=== PATIENT | female | born 1955 | race Two or more races ===

== ENCOUNTER → 2016-08-04 | Outpatient (CLI) | payer OTHER ==
[2016-08-04 14:19] VITALS: BP 139/75; PULSE 86; TEMP 98.1; BMI 27.6
--- NOTE | 2016-08-04 14:22 | P.BASOAP ---
Subjective Principal diagnosis: Morbid obesity Patient is known to our service. Somewhat poor follow-up however she underwent sleeve gastrectomy 3 years ago. She had been doing well. Her lowest weight was 176. Today she is 182. No recent lab work. She was told she had resolution of her diabetes. A recent hemoglobin A1c however did show an elevated value. She is searching for a primary care physician at this time. Recently she has had increased problems with indigestion and heartburn. She has occasional choking episodes. She had stopped her proton pump inhibitors after hearing about the potential risks of dementia. Prior to that the patient had taken Prilosec for many years. 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 Objective - Vital Signs Vital signs: Vital Signs Temp 98.1 F 08/04/16 14:15 Pulse 86 08/04/16 14:15 Resp BP 139/75 08/04/16 14:15 Pulse Ox Intake & Output 08/03/16 08/04/16 08/04/16 18:59 06:59 18:59 Weight 82.962 kg - Exam Abdomen: Soft, nontender, nondistended Assessment/Plan (1) Morbid obesity Narrative/Plan: Will renew the patient's PPI prescription. Encouraged patient to find a primary care physician to discuss her elevated hemoglobin A1c. We'll check annual lab work at this time. Plan upcoming sleeve gastrectomy. Plan: Date: 08/04/16 Initial Weight: Initial BMI: Current Weight: 82.962 kg Current BMI: 27.6 Type of Surgery: Total Volume in Band: Previous Volume: Volume Removed: Volume Added: Band Size:
[2016-08-04 15:11] LABS: CH 30.8; CHCM 34.2; HCT 46.8 % (34.0-46.0); HDW 2.49; HGB 15.5 gm/dL (11.4-16.0); MCH 29.9 pg (25.0-35.0); MCHC 33.1 g/dL (31.0-37.0); MCV 90.2 fL (80.0-100.0); Mean Platelet Volume 8.4; RBC 5.19 m/uL (3.80-5.40); RDW 12.6 % (11.5-15.5); WBC 7.8 k/uL (3.8-10.6)
[2016-08-04 15:16] LABS: ALT 33 U/L (9-52); AST 18 U/L (14-36); Alkaline Phosphatase 86 U/L (38-126); Anion Gap 11 mmol/L; Blood Urea Nitrogen 14 mg/dL (7-17); Calcium 9.6 mg/dL (8.4-10.2); Carbon Dioxide 24 mmol/L (22-30); Chloride 100 mmol/L (98-107); Glucose 375 mg/dL (74-99); Iron 163 ug/dL (37-170); Non-African American GFR(MDRD) >60 (>60 ml/min/1.73 sqM); Potassium 5.3 mmol/L (3.5-5.1); Sodium 135 mmol/L (137-145); Total Bilirubin 0.5 mg/dL (0.2-1.3); Total Protein 6.5 g/dL (6.3-8.2)
[2016-08-04 16:21] LABS: Vitamin B12 733 pg/mL (239-931)
== END | disposition home or self-care (01) ==
LOC: BARWHC3 13:03
PROVIDERS: ATTEND Surgery
DX: E66.01 Morbid (severe) obesity due to excess calories (principal)
CPT/HCPCS: 84425; 80053; 82607; 82746; 83540; 85027; 82306; G0463; 99201

== ENCOUNTER → 2018-09-13 | Outpatient (CLI) | payer OTHER ==
[2018-09-13 11:40] VITALS: BP 140/86; PULSE 76; TEMP 97.8; BMI 26.9
--- NOTE | 2018-09-13 11:50 | P.BASOAP ---
Subjective Progress Note Date: 09/13/18 Principal diagnosis: Morbid obesity 62-year-old female known to our service from previous sleeve gastrectomy. Has maintained her weight loss fairly well. Recently has had complaints of indigestion, nausea, and abdominal pain. She was started on 40 mg of omeprazole daily and her indigestion is improved. Still having pain however. Pain is both lower midline and left upper quadrant. She believes her left rib cage is swollen at times. No vomiting. Tolerating diet. Last labs were checked in April of this year. Denies rectal bleeding or melena. Objective - Vital Signs Vital signs: Vital Signs Temp 97.8 F 09/13/18 11:37 Pulse 76 09/13/18 11:37 Resp BP 140/86 09/13/18 11:37 Pulse Ox Intake & Output 09/12/18 09/13/18 09/13/18 18:59 06:59 18:59 Weight 85.275 kg - Exam Abdomen: Soft, nondistended, previous scars noted, mild left upper quadrant and lower midline tenderness, no masses Assessment/Plan (1) Morbid obesity Narrative/Plan: Patient with abdominal pain that is increasing in severity. We'll check CT abdomen and pelvis to evaluate left upper quadrant and suprapubic abdominal pains. Will check annual labs at this time. Further recommendations will follow. Plan: Date: 09/13/18 Initial Weight: Initial BMI: Current Weight: 85.275 kg Current BMI: 26.9 Type of Surgery: Total Volume in Band: Previous Volume: Volume Removed: Volume Added: Band Size:
[2018-09-13 12:49] LABS: HCT 45.3 % (34.0-46.0); HGB 15.4 gm/dL (11.4-16.0); MCH 29.3 pg (25.0-35.0); MCHC 34.1 g/dL (31.0-37.0); MCV 86.1 fL (80.0-100.0); Mean Platelet Volume 8.1; Platelet Count 246 k/uL (150-450); RBC 5.26 m/uL (3.80-5.40); RDW 12.7 % (11.5-15.5)
[2018-09-13 18:59] LABS: African American GFR (CKD) 78.9 (60.0-200.0); Albumin 4.5 g/dL (3.80-4.90); Albumin/Globulin Ratio 2.65 (1.60-3.17); Anion Gap 8.1 mmol/L (4.00-12.00); BUN/Creat Ratio 22.22 Ratio (12.00-20.00); Calcium 9.7 mg/dL (8.7-10.3); Carbon Dioxide 27.9 mmol/L (21.6-31.8); Globulin 1.7 g/dL (1.6-3.3); Potassium 4.9 mmol/L (3.5-5.5); Total Bilirubin 0.2 mg/dL (0.2-1.2); Total Protein 6.2 g/dL (6.2-8.2)
[2018-09-13 19:20] LABS: Folate, Serum 10.2 ng/mL; Vitamin D 25 Hydroxy 10.6 ng/mL (30.0-100.0)
== END | disposition home or self-care (01) ==
LOC: BARWHC3 10:56
PROVIDERS: ATTEND Surgery
DX: E66.01 Morbid (severe) obesity due to excess calories (principal); K90.89 Other intestinal malabsorption; E55.9 Vitamin D deficiency, unspecified; Z68.26 Body mass index [BMI] 26.0-26.9, adult
CPT/HCPCS: 84425; 80053; 82607; 82150; 82746; 83540; 85027; 82306; G0463; 99211

== ENCOUNTER → 2018-09-22 | Outpatient (CLI) | payer OTHER ==
[2018-09-22 08:01] LABS: African American GFR (CKD) >90 (>60 ml/min/1.73 sqM); Blood Urea Nitrogen 13 mg/dL (7-17)
--- NOTE | 2018-09-23 09:29 | CT ---
"EXAMINATION TYPE: CT abdomen pelvis w con DATE OF EXAM: 09/22/2018 COMPARISON: HISTORY: Upper quadrant abdominal pain CT DLP: 1393.0 mGycm Automated exposure control for dose reduction was used. TECHNIQUE: Helical acquisition of images from the lung bases through the pelvis have been completed. CONTRAST: Performed with Oral Contrast and with IV Contrast, patient injected with 100 ml mL of Isovue 300. FINDINGS: Postop changes are noted to the stomach, the distal esophagus is somewhat thickened and red undant. LUNG BASES: No significant abnormality is appreciated. AORTA: No significant abnormality is appreciated. LIVER/GB: Liver shows low attenuation possibly due to underlying hepatic steatosis and liver is enlar ged. Gallbladder is unremarkable. PANCREAS: No significant abnormality is seen. SPLEEN: No significant abnormality is seen. ADRENALS: No significant abnormality is seen. KIDNEYS: 2 x 3 cm mass at the upper pole the left kidney is present. Partially exophytic in location. There is heterogeneous enhancement. Duplicated left renal collecting system is present. No hydroneph rosis on the right, renal collecting system is somewhat prominent on the left. REPRODUCTIVE ORGANS: No significant abnormality is seen BOWEL: No significant abnormality is seen. FREE AIR: No Free Air visible. ASCITES: None visible. PELVIC ADENOPATHY: None visualized. RETROPERITONEAL ADENOPATHY: No Retroperitoneal Adenopathy visible. URINARY BLADDER: No significant abnormality is seen. OSSEOUS STRUCTURES: Bilateral spondylolysis present at L5. Degenerative disc changes are present in t he lumbar spine. Minimal anterolisthesis grade 1 L5-S1, L3-4. Spinal curvature could be positional. IMPRESSION: FINDINGS SUSPICIOUS FOR RENAL CELL CARCINOMA UPPER POLE LEFT KIDNEY. RECOMMEND UROLOGY CONSULT. HEPAT IC STEATOSIS, HEPATOMEGALY. POSTOP CHANGES. SPONDYLOLYSIS AND SPONDYLOLISTHESIS. A Yellow level critical message alert has been initiated for Tesfaye Bruno MD via the [employer] ([place]) 36 0 | Critical Results System on 09/23/2018 9:27 AM. This message alert has been sent to Tesfaye Bruno MD via the preferences provided by the clinician for the receipt of Radiology Critical Findings. Mess age ID [id number]."
== END | disposition home or self-care (01) ==
LOC: RADCTMAIN 07:05
PROVIDERS: ATTEND Surgery
DX: R10.12 Left upper quadrant pain (principal)
CPT/HCPCS: 82565; 84520; 74177; 36415; Q9967

== ENCOUNTER → 2018-09-26 | Outpatient (CLI) | payer OTHER ==
--- NOTE | 2018-09-26 15:45 | US ---
EXAMINATION TYPE: US kidneys/renal and bladder DATE OF EXAM: 09/26/2018 COMPARISON: CT 4 days ago. CLINICAL HISTORY: Left Renal Mass D41.02. EXAM MEASUREMENTS: Right Kidney: 10.8 x 5.5 x 5.5 cm Left Kidney: 10.8 x 4.9 x 5.0 cm Patient thick body habitus, technically difficult scan. Right Kidney: lobular contour, hyperechoic focus measuring 0.8 x 0.7 x 0.8cm Left Kidney: probable mass measuring 2.4 x 1.8 x 2.0cm Bladder: not fully distended Suboptimal study due to patient's body habitus. Lobulated contour to right kidney redemonstrated. Roxanna hnologist schwab a millimeter hyperechoic focus could correlate to the hypodense lesion posteriorly mi dpole right kidney consistent with small angiomyolipoma. Bladder is poorly distended and is thus limited in evaluation. There is poor visualization of upper pole suspicious mass on ultrasound images, technologist marked a vague hypoechoic area felt to reflect lobulated cortex CT correlation laterally upper to mid pole le jai. IMPRESSION: Poor visualization of suspicious upper pole partially exophytic 2.0 cm left renal mass on ultrasound, renal cell carcinoma must strongly be considered based on CT appearance. Advise surgical and/or interventional referral aspiration may be candidate for ablation treatment.
== END | disposition home or self-care (01) ==
LOC: RADUSWWP 14:44
PROVIDERS: ATTEND Surgery
DX: D41.02 Neoplasm of uncertain behavior of left kidney (principal)
CPT/HCPCS: 76770

== ENCOUNTER → 2019-08-09 | Outpatient (CLI) | payer MEDICARE, OTHER ==
--- NOTE | 2019-08-09 15:48 | P.HPBAR ---
Bariatric H&P - History & Physicial H&P Date: 08/09/19 History & Physicial: Visit/CC: Patient initial contact: Initial weight: Initial weight in pounds: Height: Initial BMI: Last weight: Current weight: Current weight in pounds: Current BMI: [place] body weight (based on NIH guidelines): Excess body weight loss: She The patient is a 63 year-old F who presents for Bariatric Assessment. HPI: She comes in for the sleeve followup. She reports occasional abdomingal pain. She sees Dr. Bruno. No further abdominal pain. She comes in with GERD. She reported reflux prior to her sleeve. She reports trouble with her memory and balance. She reports hair loss. She is not aware of the amount of her protein. She reports trouble with sciatic nerve. She reports unintentional fall. She does not take a MVI. She takes Krill oil. She is here for follow-up. She had her sleeve 2010. She reports dysphagia with ice cream. She still has her gallbladder. PLAN: 1. Recommend labs 2. Recommend check of gallbladder 3. Will check esophogram 4. Medical Fee Clerk recommended. 5. Studies reviewed. 6. Recommend US gallbaldder 7. She has hiatal hernia 8. She comes in panniculitis. 9. Nystatin Past Medical History Past Medical History: Diabetes Mellitus, Hypertension History of Any Multi-Drug Resistant Organisms: None Reported Past Surgical History: Bariatric Surgery, Tonsillectomy Past Anesthesia/Blood Transfusion Reactions: No Reported Reaction Smoking Status: Former smoker Bariatric Checklist Checklist: Plan: Checklist: EGD: 1. Hiatal hernia: 2. H. Pylori: HgbA1c: Vitamin D: Smoking: Former smoker Primary care physician referral: Psychiatry clearance: Cardiology clearance: Sleep study: Diet journal: VTE risk score: VTE risk level: Rehab needs at discharge:
[2019-08-09 16:03] VITALS: BP 107/74; PULSE 75; TEMP 98.2
== END | disposition home or self-care (01) ==
LOC: BARWHC3 14:52
PROVIDERS: ATTEND Surgery Plastic and Reconstructive Surgery
DX: Z48.815 Encounter for surgical aftercare following surgery on the digestive system (principal); Z98.84 Bariatric surgery status
CPT/HCPCS: 99211

== ENCOUNTER → 2019-08-14 | Outpatient (CLI) | payer MEDICARE, OTHER ==
[2019-08-14 11:17] LABS: HCT 42.8 % (34.0-46.0); HGB 14.7 gm/dL (11.4-16.0); MCH 30.1 pg (25.0-35.0); MCHC 34.4 g/dL (31.0-37.0); MCV 87.4 fL (80.0-100.0); Mean Platelet Volume 8.6; Platelet Count 240 k/uL (150-450); RDW 12.8 % (11.5-15.5); WBC 6.8 k/uL (3.8-10.6)
[2019-08-14 11:33] LABS: INR 0.9 (<1.2); Prothrombin Time 9.7 sec (9.0-12.0)
[2019-08-14 11:42] LABS: Partial Thromboplastin Time 21.8 sec (22.0-30.0)
[2019-08-14 15:56] LABS: Hemoglobin A1C 12.8 % (4.0-6.0)
[2019-08-14 16:03] LABS: % Iron Saturation 42.39 (12.00-45.00); African American GFR (CKD) 90.3 (60.0-200.0); Albumin 4.1 g/dL (3.80-4.90); Albumin/Globulin Ratio 2.28 (1.60-3.17); Anion Gap 5.9 mmol/L (4.00-12.00); Calcium 9.2 mg/dL (8.7-10.3); Carbon Dioxide 28.1 mmol/L (21.6-31.8); Chol/HDL Ratio 6.36; Globulin 1.8 g/dL (1.6-3.3); Magnesium 1.8 mg/dL (1.5-2.4); Non-African American GFR(CKD) 77.9 (60.0-200.0); Phosphorus 3.7 mg/dL (2.4-5.1); Potassium 5.2 mmol/L (3.5-5.5); Total Bilirubin 0.5 mg/dL (0.3-1.2); Total Protein 5.9 g/dL (6.2-8.2)
[2019-08-14 16:11] LABS: Ferritin 26.8 ng/mL (10.0-291.0)
[2019-08-14 16:14] LABS: Folate, Serum 16.8 ng/mL
[2019-08-15 13:16] LABS: Zinc, Serum 73 ug/dL (60-130)
[2019-08-16 08:08] LABS: Vitamin A 41 ug/dL (38-106)
[2019-08-16 08:32] LABS: Vit B1(Thiamine) 53 ug/L (38-122)
[2019-08-17 19:48] LABS: Selenium 92 mcg/L (63-160)
== END | disposition home or self-care (01) ==
LOC: LABWHC1 10:28
PROVIDERS: ATTEND Surgery Plastic and Reconstructive Surgery
DX: E21.1 Secondary hyperparathyroidism, not elsewhere classified (principal); E89.1 Postprocedural hypoinsulinemia; D50.9 Iron deficiency anemia, unspecified; K90.9 Intestinal malabsorption, unspecified; K74.1 Hepatic sclerosis; N19 Unspecified kidney failure; K50.90 Crohn's disease, unspecified, without complications; E66.01 Morbid (severe) obesity due to excess calories; E44.0 Moderate protein-calorie malnutrition; E55.9 Vitamin D deficiency, unspecified
CPT/HCPCS: 36415; 80053; 80061; 82306; 82525; 82607; 82728; 82746; 83036; 83540; 83550; 83721; 83735; 83970; 84100; 84134; 84255; 84425; 84443; 84590; 84630; 85027; 85610; 85730

== ENCOUNTER 2019-12-19 06:55 | Observation (INO) | payer MEDICARE, OTHER ==
[2019-12-19] MEDS: INSULIN ASPART (NovoLOG) 100 UNIT/ML VIAL SQ SCH ×3 (12:04→20:10)
[2019-12-19] MEDS ORDERED: PNEUMOCOCCAL VACC-PNEUMOVAX 23 25 MCG/0.5 ML VIAL IM ONE (12:12)
[2019-12-19] MEDS ORDERED: NYSTATIN 100,000 UNIT/GM POWD 15 GM TOPICAL PRN (13:24)
--- NOTE | 2019-12-19 13:32 | P.HPIM ---
History of Present Illness This is a pleasant 64 years old female with past medical history of type 2 diabetes mellitus, hypertension, osteoarthritis, GERD, diabetic neuropathy and retinopathy, history of TIA, hiatal hernia, left leg sciatica. Patient was transferred from [facility]. Her PCP is in Dr. Snow Patient presents to [facility] initially because of abdominal pain of one-day duration, periumbilical and starts in the lower abdomen and referred to the umbilicus and epigastric region, felt like sharp, associated with nausea but no vomiting, no change in urine or bowel habits. No fever Patient also reports chronic lower abdominal colicky pain but she says this is different pain. Patient denies diarrhea, no vaginal discharge or bleeding. No fever Patient denies smoking, alcohol or illicit drug Vitals are stable. Labs are [facility] showing WBC is elevated at 15.2 K, platelet count is normal to 60 7K, hemoglobin is normal at 13.4. Sodium 135, potassium 4.4, AST is normal at 19, ALT is normal at 10, creatinine is normal at 0.8. Bilirubin is normal at 0.5. Lipase is normal at 18, troponin is negative at 0.010. Lactic acid is normal at 1.4. Urinalysis showing a glucose elevated at 2 50 mg/dL, protein and 30 mg per day smoker, nonsuspicious of infection. CT of the abdomen and pelvis with contrast reported per radiologist showing atelectasis, hiatal hernia, status post esophageal gastric surgery, enlarged uterus with heterogenous density pattern. Mass measures approximately 14.2 cm in length Tracee 8.6 cm in AP I's and O 13 cm in width the uterus is displaced to the right side. EKG showing normal sinus rhythm at [address]-T changes, QTC is 437. Review of Systems CONSTITUTIONAL: No fever, no malaise, no fatigue. HEENT: No recent visual problems or hearing problems. Denied any sore throat. CARDIOVASCULAR: No orthopnea, PND, no palpitations, no syncope. PULMONARY: No shortness of breath, no cough, no hemoptysis. GASTROINTESTINAL: No diarrhea, no nausea, no vomiting, no abdominal pain. Normoactive bowel sounds. NEUROLOGICAL: No headaches, no weakness, no numbness. HEMATOLOGICAL: Denies any bleeding or petechiae. GENITOURINARY: Denies any burning micturition, frequency, or urgency. MUSCULOSKELETAL/RHEUMATOLOGICAL: Denies any joint pain, swelling, or any muscle pain. ENDOCRINE: Denies any polyuria or polydipsia. Past Medical History Past Medical History: Diabetes Mellitus, Eye Disorder, GERD/Reflux, Hypertension, Osteoarthritis (OA), Pneumonia, Renal Disease Additional Past Medical History / Comment(s): NIDDM type II-diet only since wt loss, neuropathy bilateral feet, pt states bilateral eye small retinal bleeds/small swollen patches, TIA, bronchitis, hiatal hernia, past Hpylori, nephrolithiasis, L leg sciatica History of Any Multi-Drug Resistant Organisms: None Reported Past Surgical History: Bariatric Surgery, Hernia Repair, Orthopedic Surgery, Tonsillectomy, Uterine Ablation Additional Past Surgical History / Comment(s): Gastric sleeve, EGD, colonoscopy, umbilical hernia, L knee arthroscopy/meniscus repair, R carpal tunnel release Past Anesthesia/Blood Transfusion Reactions: No Reported Reaction, Motion Sickness Additional Past Anesthesia/Blood Transfusion Reaction / Comment(s): Clausterphobia. Smoking Status: Former smoker - Past Family History Father Family Medical History: Congestive Heart Failure (CHF), Diabetes Mellitus Mother Family Medical History: Congestive Heart Failure (CHF), Diabetes Mellitus Medications and Allergies Home Medications Medication Instructions Recorded Confirmed Type ALPRAZolam [Xanax] 0.5 mg PO TID PRN 09/13/18 12/19/19 History Escitalopram [Lexapro] 20 mg PO DAILY 09/13/18 12/19/19 History Fish Oil/Dha/Epa [Fish Oil 1,200 1 tab PO DAILY 09/13/18 12/19/19 History mg Fish Oil] Losartan [Cozaar] 25 mg PO DAILY 09/13/18 12/19/19 History RX: Multivitamin [Multivitamins 1 tab PO DAILY 09/13/18 12/19/19 History Adult Gummies] RX: Omeprazole 40 mg PO DAILY 09/13/18 12/19/19 History atenoloL [Tenormin] 25 mg PO DAILY 09/13/18 12/19/19 History Ergocalciferol [Vitamin D2 50,000 unit PO TAN 09/15/18 12/19/19 History (DRISDOL)] RX: Cetirizine HCl 10 mg PO DAILY 12/19/19 12/19/19 History RX: Folic Acid 0.8 mg PO DAILY 12/19/19 12/19/19 History RX: Nystatin 100,000 Unit/gm Powd 1 applic TOPICAL BID PRN 12/19/19 12/19/19 History [Mycostatin Powder] Turmeric Root Extract [Turmeric] 500 mg PO DAILY 12/19/19 12/19/19 History Allergies Allergy/AdvReac Type Severity Reaction Status Date / Time No Known Allergies Allergy Verified 12/19/19 12:13 Physical Exam Vitals: Vital Signs Temp Pulse Resp BP Pulse Ox 12/19/19 11:33 98.7 F 89 16 127/71 94 L Intake and Output 12/18/19 12/19/19 12/19/19 22:59 06:59 14:59 Other: Weight 82.27 kg GENERAL: The patient is alert and oriented x3, not in any acute distress. Well developed, well nourished. HEENT: Pupils are round and equally reacting to light. EOMI. No scleral icterus. No conjunctival pallor. Normocephalic, atraumatic. No pharyngeal erythema. No thyromegaly. CARDIOVASCULAR: S1 and S2 present. No murmurs, rubs, or gallops. PULMONARY: Chest is clear to auscultation, no wheezing or crackles. -ABDOMEN: Soft, lower abdominal tenderness, no rebound tenderness, nondistended, normoactive bowel sounds. No palpable organomegaly. MUSCULOSKELETAL: No joint swelling or deformity. EXTREMITIES: No cyanosis, clubbing, or pedal edema. NEUROLOGICAL: Gross neurological examination did not reveal any focal deficits. SKIN: No rashes. No petechiae Thrombosis Risk Factor Assmnt - Choose All That Apply Any of the Below Risk Factors Present?: Yes Each Factor Represents 1 point: Obesity (BMI >25) Other Risk Factors: Yes Each Risk Factor Represents 2 Points: Age 61-74 years Other congenital or acquired thrombophilia - If yes, enter type in comment: No Thrombosis Risk Factor Assessment Total Risk Factor Score: 3 Thrombosis Risk Factor Assessment Level: Moderate Risk Assessment and Plan Assessment: Uterine/pelvic mass with heterogenous consistency 14.2 cm x 8.6 cm x 13 cm type 2 diabetes mellitus hypertension osteoarthritis GERD diabetic neuropathy and retinopathy history of TIA hiatal hernia left leg sciatica Plan: This is a pleasant 64 years old female who presents with pelvic mass. We'll ask for a [employer] consult to evaluate the patient. Pain management. Labs and medication were reviewed.. Continue same treatment. Continue with symptomatic treatment. Resume home medication. Monitor lytes and vitals. DVT and GI prophylaxis. Further recommendations depends on the clinical course of the patient DVT prophylaxis: Subcutaneous heparin GI Prophylaxis: Pepcid
[2019-12-19] MEDS: ENOXAPARIN 40 MG/0.4 ML SYRINGE SQ SCH (15:57)
[2019-12-19] MEDS ORDERED: CALCIUM CARBONATE 500 MG CHEWABLE PO PRN (15:58)
[2019-12-19] MEDS: ONDANSETRON 4 MG/2 ML VIAL IVP PRN (17:02)
[2019-12-19 17:09] LABS: Glucose,Whole Blood 334 mg/dL (75-99)
[2019-12-19] MEDS ORDERED: KETOROLAC 15 MG/ML 1 ML VIAL IVP PRN (18:31)
--- NOTE | 2019-12-19 18:38 | P.OBCN ---
History of Present Illness Consult date: 12/19/19 Requesting physician: James Soriano Reason for consult: pelvic pain, pelvic mass Chief complaint: abdominal/pelvic pain History of present illness: 64-year-old female presented to [facility] last night with complaints of right lower quadrant pain. The pain woke her up from sleep when she rolled over on her initial cold sweat nausea. Over the last 5 months she has noticed some increase in cramping and early satiety. CT showed an enlarged uterus with a possible pelvic mass or ovary displacing the uterus. She was transferred from [facility] to our internal medicine service. I Was asked to consult after the patient arrived. He has had no vaginal bleeding and did have a endometrial ablation several years ago. Review of Systems Constitutional: Reports chills, Denies fever Eyes: denies blurred vision, denies pain Ears, nose, mouth and throat: Denies headache, Denies sore throat Cardiovascular: Denies chest pain, Denies shortness of breath Respiratory: Denies cough, Denies wheezing Gastrointestinal: Reports abdominal pain, Reports early satiety, Reports nausea, Reports vomiting Genitourinary: Reports pelvic pain, Reports urinary frequency, Denies abnormal vaginal bleeding, Denies dysuria Musculoskeletal: Denies myalgias Integumentary: Denies pruritus, Denies rash Neurological: Denies numbness, Denies weakness Psychiatric: Denies anxiety, Denies depression Past Medical History Past Medical History: Diabetes Mellitus, Eye Disorder, GERD/Reflux, Hypertension, Osteoarthritis (OA), Renal Disease Additional Past Medical History / Comment(s): NIDDM type II-diet only since wt loss, neuropathy bilateral feet, pt states bilateral eye small retinal bleeds/small swollen patches, TIA, bronchitis, hiatal hernia, nephrolithiasis, L leg sciatica History of Any Multi-Drug Resistant Organisms: None Reported Past Surgical History: Bariatric Surgery, Hernia Repair, Orthopedic Surgery, Tonsillectomy, Uterine Ablation Additional Past Surgical History / Comment(s): Gastric sleeve, EGD, colonoscopy, umbilical hernia, L knee arthroscopy/meniscus repair, R carpal tunnel release Past Anesthesia/Blood Transfusion Reactions: No Reported Reaction, Motion Sickness Additional Past Anesthesia/Blood Transfusion Reaction / Comm: Clausterphobia. Smoking Status: Former smoker - Past Family History Father Family Medical History: Congestive Heart Failure (CHF), Diabetes Mellitus Mother Family Medical History: Congestive Heart Failure (CHF), Diabetes Mellitus Medications and Allergies Home Medications Medication Instructions Recorded Confirmed Type ALPRAZolam [Xanax] 0.5 mg PO TID PRN 09/13/18 12/19/19 History Escitalopram [Lexapro] 20 mg PO DAILY 09/13/18 12/19/19 History Fish Oil/Dha/Epa [Fish Oil 1,200 1 tab PO DAILY 09/13/18 12/19/19 History mg Fish Oil] Losartan [Cozaar] 25 mg PO DAILY 09/13/18 12/19/19 History Multivitamin [Multivitamins Adult 1 tab PO DAILY 09/13/18 12/19/19 History Gummies] Omeprazole 40 mg PO DAILY 09/13/18 12/19/19 History atenoloL [Tenormin] 25 mg PO DAILY 09/13/18 12/19/19 History Ergocalciferol [Vitamin D2 50,000 unit PO TAN 09/15/18 12/19/19 History (DRISDOL)] Cetirizine HCl 10 mg PO DAILY 12/19/19 12/19/19 History Folic Acid 0.8 mg PO DAILY 12/19/19 12/19/19 History Nystatin 100,000 Unit/gm Powd 1 applic TOPICAL BID PRN 12/19/19 12/19/19 History [Mycostatin Powder] Turmeric Root Extract [Turmeric] 500 mg PO DAILY 12/19/19 12/19/19 History Allergies Allergy/AdvReac Type Severity Reaction Status Date / Time No Known Allergies Allergy Verified 12/19/19 12:13 Exam Osteopathic Statement: *. No significant issues noted on an osteopathic structural exam other than those noted in the History and Physical/Consult. Vital Signs Temp Pulse Resp BP Pulse Ox 12/19/19 11:33 98.7 F 89 16 127/71 94 L Intake and Output 12/19/19 12/19/19 12/19/19 06:59 14:59 22:59 Intake Total 600 Balance 600 Intake: Oral 600 Other: Voiding Method Toilet # Voids 2 Weight 82.27 kg Heart: Regular rate and rhythm Lungs lungs: Clearbilaterally Abdomen: Mildly distended, diffuse discomfort with deep palpation, no rebound and no rigidity Extremities: Negative Homans sign and no edema Results Abnormal Lab Results - Last 24 Hours (Table) 12/19/19 Range/Units 17:05 POC Glucose (mg/dL) 334 H (75-99) mg/dL Assessment and Plan (1) Pelvic mass in female Current Visit: Yes Status: Acute Code(s): R19.00 - INTRA-ABD AND PELVIC SWELLING, MASS AND LUMP, UNSP SITE SNOMED Code(s): 55381888 (2) Pelvic pain Current Visit: Yes Status: Acute Code(s): R10.2 - PELVIC AND PERINEAL PAIN SNOMED Code(s): 56436832 Plan: 1. The patient appears comfortable and the bed she just has some discomfort with palpation. long discussion about the possibility of ovarian torsion, degenerating fibroid, leiomyosarcoma. We'll start with an ultrasound and see if it can identify this pelvic mass. If her urine unable to identify the mass and the patient states comfortable she may need an MRI an outpatient setting.
[2019-12-19] MEDS: FAMOTIDINE 20 MG/2 ML VIAL IV SCH (19:36)
[2019-12-19 20:02] LABS: Glucose,Whole Blood 326 mg/dL (75-99)
[2019-12-19 20:46] LABS: Basophils % (A) 0 %; Eosinophils # (A) 0.1 k/uL (0-0.7); Eosinophils % (A) 1 %; HCT 37.9 % (34.0-46.0); HGB 12.7 gm/dL (11.4-16.0); Lymphocytes # (A) 1.2 k/uL (1.0-4.8); Lymphocytes % (A) 11 %; MCH 29.3 pg (25.0-35.0); MCHC 33.5 g/dL (31.0-37.0); MCV 87.5 fL (80.0-100.0); Mean Platelet Volume 7.5; Monocytes # (A) 0.5 k/uL (0-1.0); Monocytes % (A) 5 %; Neutrophils # (A) 9.1 k/uL (1.3-7.7); Neutrophils % (A) 83 %; Platelet Count 267 k/uL (150-450); RBC 4.34 m/uL (3.80-5.40); RDW 12.5 % (11.5-15.5)
[2019-12-19 21:02] LABS: African American GFR (CKD) >90 (>60 ml/min/1.73 sqM); Anion Gap 5 mmol/L; Blood Urea Nitrogen 15 mg/dL (7-17); Calcium 8.4 mg/dL (8.4-10.2); Carbon Dioxide 26 mmol/L (22-30); Chloride 97 mmol/L (98-107); Glucose 305 mg/dL (74-99); Non-African American GFR(CKD) >90 (>60 ml/min/1.73 sqM); Potassium 4.5 mmol/L (3.5-5.1); Sodium 128 mmol/L (137-145)
--- NOTE | 2019-12-19 21:43 | US ---
EXAMINATION TYPE: US pelvis comp w/tv w/doppler DATE OF EXAM: 12/19/2019 COMPARISON: CT CLINICAL HISTORY: pelvic mass, ovarian torsion, fibroids. Pelvic mass, chronic pelvic pain x 6 months . Hx fibroids. Hx ablation. . TECHNIQUE: Transvaginal (TV) and Transabdominal (TA) . Transabdominal sonographic images of the pel vis were acquired. Transvaginal sonographic images were medically necessary to better assess the fol lowing anatomy: ovaries and uterus. Date of LMP: About 13 years ago. EXAM MEASUREMENTS: 1. Uterus: Not clearly visualized. 2. Right Ovary: Not clearly visualized. 3. Left Ovary: Possible left ovary visualized measurin.1 x 6.3 x 5.1 cm. Arterial and venous wav eforms shown within this ill-defined left adnexal area. If this area resembles the left ovary, measur ements show enlargement. Anechoic areas seen within, largest measurin.0 x 2.8 x 2.7 cm. 4. Bilateral Adnexa: Limited. -At midline, large complex area with vascularity seen measuring approximately: 16.6 x 13.2 x 9.0 cm. This area extends into the right and left adnexa. Arterial and venous waveforms shown within the area . IMPRESSION: Large midline pelvic mass. Uterus difficult to evaluate. The patient had CT scan today at [facility] that appears to show a large pelvic mass that could be tumor of the left ovary. T his measures 13 cm in length.
[2019-12-20 07:23] LABS: Glucose,Whole Blood 286 mg/dL (75-99)
[2019-12-20] MEDS ORDERED: ALPRAZolam 0.5 MG TAB PO PRN (07:53)
[2019-12-20] MEDS: INSULIN ASPART (NovoLOG) 100 UNIT/ML VIAL SQ SCH ×2 (08:01→13:30)
[2019-12-20] MEDS: FAMOTIDINE 20 MG/2 ML VIAL IV SCH (08:01)
[2019-12-20] MEDS: ONDANSETRON 4 MG/2 ML VIAL IVP PRN (08:01)
[2019-12-20] MEDS: ENOXAPARIN 40 MG/0.4 ML SYRINGE SQ SCH (08:03)
--- NOTE | 2019-12-20 08:18 | P.PN ---
Progress Note - Text Progress Note Date: 12/20/19 pelvic mass Pt seen and examined again this morning. She is keeping a little bit of food down. Her pain is better, she had a few twinges in the night but no need for pain medication. She did have her ultrasound which showed a 7 cm left ovary with a few anechoic areas the largest measuring 3 cm, blood flow to both ovaries. There is also a 16 cm pelvic mass that is hypervascular and in the midline near the uterus. At this point, I know that her ovary is enlarged and she has a pelvic mass. This is highly suspicious for cancer of the female genital organs. I would recommend she see either Dr. Alek Dela Cruz or Domo Asher at [facility] in [place], [facility] [employer]. She could do this on an outpatient basis with tramadol to take home in case her pain returns. I do recommend the appointment be set up prior to discharge.
[2019-12-20] MEDS ORDERED: LOSARTAN 25 MG TAB PO SCH (09:00)
[2019-12-20] MEDS ORDERED: atenoloL 25 MG TAB PO SCH (09:00)
[2019-12-20] MEDS ORDERED: ESCITALOPRAM 20 MG TAB PO SCH (09:00)
[2019-12-20 10:13] LABS: Hemoglobin A1C 11.7 % (4.0-6.0)
[2019-12-20 11:56] LABS: Glucose,Whole Blood 328 mg/dL (75-99)
[2019-12-20 11:56] LABS: Glucose,Whole Blood 341 mg/dL (75-99)
[2019-12-20 12:09] VITALS: BP 123/77; PULSE 64; RESP 17; TEMP 98.1
[2019-12-20] MEDS ORDERED: metFORMIN 500 MG TAB PO SCH (13:45)
[2019-12-20] MEDS ORDERED: INSULIN DETEMIR (LEVEMIR) 100 UNIT/ML SYR SQ SCH (14:00)
[2019-12-20] MEDS ORDERED: INSULIN ASPART (NovoLOG) 100 UNIT/ML VIAL SQ SCH (17:30)
--- NOTE | 2019-12-21 07:37 | P.DS ---
Providers Date of admission: 12/19/19 11:29 Attending physician: James Soriano MD Consults: 12/19/19 11:51 Consult Physician Routine Consulting Provider: Jackie Luque Consult Reason/Comments: pelvic mass Do you want consulting provider notified?: Yes Primary care physician: James Soriano MD Hospital Course: Diagnoses: -Uterine/pelvic mass with heterogenous consistency 14.2 cm x 8.6 cm x 13 cm, pelvic ultrasound showing pelvic mass and possible left ovarian mass, referred to [facility] as an outpatient -type 2 diabetes mellitus, uncontrolled hyperglycemia and hemoglobin A1c elevated, started on insulin upon discharge -hypertension -osteoarthritis -GERD -diabetic neuropathy and retinopathy -history of TIA -hiatal hernia -left leg sciatica Hospital course: This is a pleasant 64 years old female with past medical history of type 2 diabetes mellitus, hypertension, osteoarthritis, GERD, diabetic neuropathy and retinopathy, history of TIA, hiatal hernia, left leg sciatica. Patient was transferred from [facility]. Her PCP is in Dr. Allen at [place] . Patient presents to [facility] initially because of abdominal pain of one-day duration, CT of the abdomen and pelvis with contrast reported per radiologist showing atelectasis, hiatal hernia, status post esophageal gastric surgery, enlarged uterus with heterogenous density pattern Mass measures approximately 14.2 cm in length x 8.6 cm in jasmyn x13 cm in width the uterus is displaced to the right side. Gynecological consults obtained Dr. Dr. Luque, pelvic ultrasound showed a large left ovary 7.1 x 6.3 x 5.1 cm with necrotic areas, also with large complex area with vascularity in the midline measuring approximately 16.6 x 13[address] Luque recommended she see either Dr. Alek Dela Cruz or Domo Asher at [facility] in [place], [facility]. Staff contacted [facility] as recommended by Dr. Luque, patient information was referred to their staff who stated they are going to call the patient for appointment, patient feels asymptomatic except from very mild residual abdominal pain like 1 or less than 1/10 in severity as patient describes, patient is eager to go home today and follow-up as an outpatient, she was informed about her diagnosis of pelvic mass and left ovarian mass with possible malignancy, she verbalized understanding and she stated back to me, she agrees to follow up with her PCP and with Dr. Luque in 1-2 weeks and agent producer at [facility]. Patient denies any other symptoms no chest pain or dyspnea, no change in urine or bowel habits, no nausea vomiting, no fever, no rash. She has mild high WBC 11 K but no signs of infection, no need for antibiotics upon discharge, possibly reactive Patient does she has diabetes but she admits not taking medication, she refuses to start her on pelvis like metformin which causes her stomach upset and she prefers to use insulin which looks appropriate as she has significantly elevated hemoglobin A1c at 11.7% patient will was started on Levemir 5 units daily plus short-acting insulin 5 units with meals with recommendation to check glucose 4 times a day and follow-up as an outpatient and she agrees (she states she has a glucometer at home) Patient was cleared for discharge by Dr. Luque from gynecology service Problems and management plan were discussed with the patient and he verbalized understanding and acceptance Patient was found stable and can be discharged home however he needs follow-up as an outpatient. Patient was instructed to follow up with PCP within one week and patient agrees appointment made for her on 12/24, also I called and I discussed the case with her including the need to follow-up with [facility] in [place] for her pelvic and uterine mass and she kindly took note of this and she will follow-up on that. Also patient was instructed to follow up with Dr. Luque in 1-2 weeks also to follow-up with either Dr. Alek Dela Cruz or Domo Asher at [facility] in [place], [facility]. Patient agrees with this plan Gen: patient is a AAOx3, no distress CVS: S1-S2, RRR, no murmur Lungs: B/L CTA, no wheezing Abdomen: soft, no distention, no tenderness, positive bowel sounds Extremity: no leg edema or induration Time spent more than 35 minutes Plan - Discharge Summary Discharge Rx Participant: No New Discharge Prescriptions: New traMADol HCL [Ultram] 50 mg PO Q4HR PRN 3 Days #18 tab PRN Reason: Pain Insulin Detemir (Levemir) [Levemir] 5 unit SQ DAILY@0700 #1 vial INSULIN ASPART (NovoLOG) [NovoLOG (formulary)] 5 unit SQ AC-TID #1 vial Continue Escitalopram [Lexapro] 20 mg PO DAILY ALPRAZolam [Xanax] 0.5 mg PO TID PRN PRN Reason: Anxiety atenoloL [Tenormin] 25 mg PO DAILY Losartan [Cozaar] 25 mg PO DAILY Omeprazole 40 mg PO DAILY Multivitamin [Multivitamins Adult Gummies] 1 tab PO DAILY Fish Oil/Dha/Epa [Fish Oil 1,200 mg Fish Oil] 1 tab PO DAILY Ergocalciferol [Vitamin D2 (DRISDOL)] 50,000 unit PO TAN Folic Acid 0.8 mg PO DAILY Nystatin 100,000 Unit/gm Powd [Mycostatin Powder] 1 applic TOPICAL BID PRN PRN Reason: Rash Turmeric Root Extract [Turmeric] 500 mg PO DAILY Discontinued Cetirizine HCl 10 mg PO DAILY Discharge Medication List ALPRAZolam [Xanax] 0.5 mg PO TID PRN 09/13/18 [History] Escitalopram [Lexapro] 20 mg PO DAILY 09/13/18 [History] Fish Oil/Dha/Epa [Fish Oil 1,200 mg Fish Oil] 1 tab PO DAILY 09/13/18 [History] Losartan [Cozaar] 25 mg PO DAILY 09/13/18 [History] Multivitamin [Multivitamins Adult Gummies] 1 tab PO DAILY 09/13/18 [History] Omeprazole 40 mg PO DAILY 09/13/18 [History] atenoloL [Tenormin] 25 mg PO DAILY 09/13/18 [History] Ergocalciferol [Vitamin D2 (DRISDOL)] 50,000 unit PO TAN 09/15/18 [History] Folic Acid 0.8 mg PO DAILY 12/19/19 [History] Nystatin 100,000 Unit/gm Powd [Mycostatin Powder] 1 applic TOPICAL BID PRN 12/19/19 [History] Turmeric Root Extract [Turmeric] 500 mg PO DAILY 12/19/19 [History] INSULIN ASPART (NovoLOG) [NovoLOG (formulary)] 5 unit SQ AC-TID #1 vial 12/20/19 [Rx] Insulin Detemir (Levemir) [Levemir] 5 unit SQ DAILY@0700 #1 vial 12/20/19 [Rx] traMADol HCL [Ultram] 50 mg PO Q4HR PRN 3 Days #18 tab 12/20/19 [Rx] Follow up Appointment(s)/Referral(s): reymundo allen [Other] - 12/25/19 10:30 am Jackie Luque DO [Doctor of Osteopathic Medicine] - As Needed (after her consult/referral with [facility]) Alek Dela Cruz MD [REFERRING] - 1 Week (at [facility] ) Patient Instructions/Handouts: Tramadol (By mouth), Insulin Aspart, Recombinant (By injection), Insulin Detemir (By injection) Activity/Diet/Wound Care/Special Instructions: [facility] will be calling patient to set up an appointment with either Dr. Domo Johnson, or with Dr. Alek Dela Cruz after discharge. heart healthy diet activity is limited till you see your doctor We recommend to check her glucose 4 times a day, before each meal and at bedtime, keep the results in a log book and bring continue her doctor on her appointment date... A glucose less than 70 or more than 400, and call 911 on come to emergency room Discharge Disposition: HOME SELF-CARE
[2019-12-24] MEDS ORDERED: ERGOCALCIFEROL 50,000 UNIT CAP PO SCH (13:24)
== END 2019-12-20 16:17 | disposition home or self-care (01) ==
LOC: 6NMEDSUR 11:29 → INTOOBSV 11:29 → UNDODISIN 12-20 16:17
PROVIDERS: ADMIT Internal Medicine; ATTEND Internal Medicine
DX: N85.2 Hypertrophy of uterus (principal); N83.9 Noninflammatory disorder of ovary, fallopian tube and broad ligament, unspecified; E11.65 Type 2 diabetes mellitus with hyperglycemia; E11.319 Type 2 diabetes mellitus with unspecified diabetic retinopathy without macular edema; E11.40 Type 2 diabetes mellitus with diabetic neuropathy, unspecified; I10 Essential (primary) hypertension; K21.9 Gastro-esophageal reflux disease without esophagitis; K44.9 Diaphragmatic hernia without obstruction or gangrene; F40.240 Claustrophobia; J98.11 Atelectasis; M19.90 Unspecified osteoarthritis, unspecified site; M54.32 Sciatica, left side; E66.9 Obesity, unspecified; Z68.26 Body mass index [BMI] 26.0-26.9, adult; Z79.899 Other long term (current) drug therapy; Z23 Encounter for immunization; Z86.73 Personal history of transient ischemic attack (TIA), and cerebral infarction without residual deficits; Z87.01 Personal history of pneumonia (recurrent); Z86.19 Personal history of other infectious and parasitic diseases; Z98.890 Other specified postprocedural states; Z87.442 Personal history of urinary calculi; Z98.84 Bariatric surgery status; Z87.891 Personal history of nicotine dependence; Z82.49 Family history of ischemic heart disease and other diseases of the circulatory system; Z83.3 Family history of diabetes mellitus
CPT/HCPCS: 96376; 96374; 96375; 80048; 85025; 83036; 93976; 76856; 76830; 90732; G0379; G0378 ×2; G0009; J2405 ×2

== ENCOUNTER → 2020-02-20 | Outpatient (CLI) | payer MEDICARE, OTHER ==
--- NOTE | 2020-02-20 15:59 | CT ---
EXAMINATION TYPE: CT ChestAbdPelvis w con DATE OF EXAM: 02/20/2020 COMPARISON: CT abdomen and pelvis September 22, 2018 HISTORY: Follow up for endometrial cancer. CT DLP: 1626.6 mGycm. Automated Exposure Control for Dose Reduction was Utilized. CONTRAST: CT scan of the thorax, abdomen and pelvis is performed with IV Contrast, patient injected with 100ml mL of Isovue 300. FINDINGS: LUNGS: The lungs are grossly clear, there is no concerning parenchymal mass or nodule identified. T here is no pleural effusion or pneumothorax seen. The tracheobronchial tree is patent. MEDIASTINUM: There are no greater than 1 cm hilar or mediastinal lymph nodes. . Prominent but subcen timeter prevascular lymph nodes. No cardiomegaly or pericardial effusion is seen. Heterogeneous post erior 1.9 cm right thyroid nodule axial image 3 upper to midpole level. LIVER/GB: No significant abnormality is appreciated. PANCREAS: No significant abnormality is seen. SPLEEN: No significant abnormality is seen. ADRENALS: No significant abnormality is seen. KIDNEYS: Persistent partially exophytic 2.4 cm anterior left renal mass that shows enhancement and wa shout axial image 59 worrisome for neoplasm. BOWEL: Oral contrast does not reach level of terminal ileum. No suspicious small or large bowel dilat ation. Small bowel feces sign in the terminal ileum. Findings consistent with delayed passage of simona sted material to colonic level. GENITAL ORGANS: Uterus now surgically absent. Few scattered bilateral pelvic phleboliths. Left pelvic mild fat stranding and surgical clip is now present. There is no abnormal fluid or soft tissue surro unding left iliac vessels with ovoid 3.9 x 2.3 cm low density area axial image 97. Possible lymphocel e or postsurgical seroma. LYMPH NODES: No greater than 1cm abdominal or pelvic lymph nodes are appreciated. OSSEOUS STRUCTURES: Multilevel spurring in the spine. Slight underlying scoliotic curvature on moreira l images. Bilateral pars defect L5 level with slight grade 1 anterolisthesis L5 on S1. Mild multileve l disc space narrowing in the lower lumbar spine. Multilevel facet arthropathy in the lower lumbar sp ine. OTHER: A vertical scar overlies the midline of the lower abdomen anteriorly on current study. IMPRESSION: Interval hysterectomy. No abnormal findings left pelvis favor postsurgical change if ther e has been recent hysterectomy. Correlate clinically. Persistent suspicious upper pole left renal mas s worrisome for neoplasm is stable. No new suspicious mass or adenopathy to suggest metastatic diseas e.
== END | disposition home or self-care (01) ==
LOC: RADCTMAIN 13:40
PROVIDERS: ATTEND Internal Medicine Hematology & Oncology
DX: C54.1 Malignant neoplasm of endometrium (principal); Z98.890 Other specified postprocedural states; Z90.710 Acquired absence of both cervix and uterus
CPT/HCPCS: 82565; 84520; 71260; 74177; 36415; Q9967

== ENCOUNTER → 2020-09-05 | Outpatient (CLI) | payer MEDICARE, OTHER ==
--- NOTE | 2020-09-05 12:02 | CT ---
EXAMINATION TYPE: CT abdomen pelvis w con DATE OF EXAM: 09/05/2020 COMPARISON: 02/20/2020 INDICATION: Endometrial cancer DLP: 1535.1 mGycm, Automated exposure control for dose reduction was used. CONTRAST: 100 mL of Isovue 300. Study performed with Oral Contrast TECHNIQUE: Axial images were obtained from above the diaphragm to the pubic rami in the axial plane a t 5 mm thick sections. Reconstructed images are reviewed on the computer in the coronal plane. FINDINGS: Limited CT sections are obtained the lung bases. The lung bases are clear. There is a moderate size hiatal hernia with reflux into the distal esophagus during the exam. CT ABDOMEN: Liver: Normal Spleen: Normal Pancreas: Normal Adrenal glands: The adrenal glands are normal. Gallbladder: Normal Kidneys: No masses are evident. No hydronephrosis is present. No cysts are present. Delayed images were obtained through the kidneys, which remain unremarkable. Aorta: Vascular calcification is within the aorta. Inferior vena cava: Normal. CT PELVIS: There may be some mild wall thickening of the ileum. Correlate for ileitis. Colon appears unremarkabl e. Contrast extends to the proximal transverse colon. Fecal debris is descending colon. There are loo ps of bowel which are incompletely distended or lack oral contrast limiting their evaluation. Appendix: Normal as visualized. Urinary bladder: Normal. Genitourinary structures: Uterus and ovaries are not identified. Osseous structures: No suspicious lytic or sclerotic lesions. Spondylolysis of L5 is evident. Some fa cet degenerative change through the lumbar spine. Lymphadenopathy: No enlarged lymphadenopathy is evident. Previous abnormal soft tissue density in the left iliac region has resolved. IMPRESSIONS: 1. There is some mild wall thickening in loops of ileum. Correlate for ileitis. 2. Hiatal hernia. Some reflux in the distal esophagus is evident. 3. No suspicious changes to suggest metastatic disease.
== END | disposition home or self-care (01) ==
LOC: RADCTMAIN 06:54
PROVIDERS: ATTEND Internal Medicine Hematology & Oncology
DX: C54.1 Malignant neoplasm of endometrium (principal); K21.9 Gastro-esophageal reflux disease without esophagitis; K44.9 Diaphragmatic hernia without obstruction or gangrene
CPT/HCPCS: 82565; 84520; 74177; 36415; Q9967

== ENCOUNTER → 2020-12-27 | Outpatient (CLI) | payer MEDICARE, OTHER ==
--- NOTE | 2020-12-27 22:46 | PE ---
EXAMINATION TYPE: PET CT fusion skull to thigh DATE OF EXAM: 12/27/2020 COMPARISON: Most recent CT abdomen and pelvis study September 05, 2020 and older studies. HISTORY: Endometrial cancer progress study. Diagnosed in Treated surgically December 2019. Chemothe rapy and radiation treatment through August 2020. TECHNIQUE: Following the intravenous administration of 11.01 mCi of F-18 FDG, whole body images are performed from the skull base to the midthigh. Images are reviewed on the computer in the coronal, a xial, and sagittal planes. Reconstructed rotating images are created on independent workstation and reviewed on the computer. A localization and attenuation correction CT is performed in conjunction with the PET scan. Blood glucose level equals 108 SCAN: Subsequent Scan FINDINGS: SKULL BASE AND NECK: No areas of abnormal hypermetabolic uptake. CHEST, MEDIASTINUM, AND HILAR REGION: No suspicious areas of abnormal hypermetabolic uptake. ABDOMEN AND PELVIS: Normal excretion is present. Uterus is surgically absent. No areas of suspicious hypermetabolic uptake. OSSEOUS STRUCTURES: No areas of suspicious hypermetabolic uptake. OTHER CT: Persistent 1.9 cm posterior right thyroid nodule axial image 58. Moderate to severe three-v essel coronary calcification. Low lung volumes. Surgical changes from gastric sleeve are redemonstrated. There is small to moderate size hiatal herni a redemonstrated. Postsurgical scarring in the anterior abdominal wall from the umbilicus through the pelvis. Occasional scattered pelvic phlebolith. Multilevel spurring the spine. Multilevel disc space narrowing greatest at lumbosacral junction where there is subtle spondylolisthesis. IMPRESSION: No suspicious hypermetabolic masses or lymph nodes to suggest recurrent neoplasm.
== END | disposition home or self-care (01) ==
LOC: RADPETMAIN 10:31
PROVIDERS: ATTEND Internal Medicine Hematology & Oncology
DX: Z85.42 Personal history of malignant neoplasm of other parts of uterus (principal)
CPT/HCPCS: 78815; A9552